=== PATIENT | male | born 1960 | race Caucasian/White ===

== ENCOUNTER 2017-04-28 22:05 | Emergency (ER) | payer OTHER, MEDICARE ==
[~2017-04-28 22:05] MED LIST: ASPIRIN EC81 M1 PO; CYCLOBENZAPRINE10 M1 PO; FLUOXETINE HCL20 M3 PO; IBUPROFEN800 M1 PO; MEDROL4 M2 PO; METOPROLOL SUCC25 M1 PO; MOBIC15 M1 PO; PERCOCET 5-3251 EACH PO
--- NOTE | 2017-04-28 22:36 | ED HAND/WRIST INJURY COMPLAINT ---
History of Present Illness General Chief Complaint: General Adult Stated Complaint: DRESSING CHANGE Source: patient, old records Exam Limitations: no limitations Vital Signs & Intake/Output Vital Signs & Intake/Output Vital Signs Date Time Temp Pulse Resp B/P B/P Pulse O2 O2 Flow FiO2 Mean Ox Delivery Rate 04/28 2212 97.8 20 98 ED Intake and Output 04/29 0000 04/28 1200 Intake Total 0 Output Total Balance 0 Intake, Oral 0 Allergies Coded Allergies: NO KNOWN ALLERGIES (08/12/11) Reconcile Medications Aspirin (Ecotrin*) 81 MG TABLET.DR 1 TAB PO DAILY HEART/BLOOD (Reported) Cephalexin (Keflex) 500 MG CAPSULE 1 CAP PO TID ppx Cyclobenzaprine HCl 10 MG TABLET 1 TAB PO QPM PRN MUSCLE STRAIN Fluoxetine HCl 20 MG TABLET 1 TAB PO DAILY MENTAL HEALTH (Reported) Meloxicam (Mobic) 15 MG TABLET 1 TAB PO DAILY PRN PAIN Methylprednisolone. (Medrol) 4 MG TAB.DS.PK 1 DP PO AD ACUTE NERVE PAIN 6 on day 1 then reduce by one tablet daily until gone Metoprolol Succinate 25 MG TAB 1 TAB PO DAILY HEART (Reported) Triage Note: PER PT CAME TO ED FOR DRESSING CHANGE, PT HAD SUTURES PLACED AT [facility] YESTERDAY TO L 5TH DIGIT, PT WAS TOLD COULD NOT CHANGE DRESSING NOW REQUESTING TO BE SEEN Triage Nurses Notes Reviewed? yes Occurred: yesterday Duration: day(s): (2), better Timing: remote history Injury Environment: work Severity: mild Severity Numbers: 1 Pain/Injury Location: Left: 5th finger. Context: laceration Method of Injury: laceration No Modifying Factors: none Associated Symptoms: none HPI: 56-year-old male presents for wound check after he sustained injury to his left fifth finger yesterday while at work when he cut it with a knife. He states that the provider at [facility] told him there was nothing to suture and a dressing was placed. Advise them to come to the hospital to have the dressing looked at the next day. He denies any pain numbness tingling. No fever no chills no swelling or rashes to his finger. No modifying factors or associated symptoms otherwise. He was not started on any antibiotics. Past History Travel History Traveled to [place] past 21 day No Medical History Any Pertinent Medical History? see below for history Neurological: NONE EENT: NONE Cardiovascular: TRIPLE BYPASS Respiratory: obstructive sleep apnea Gastrointestinal: NONE Hepatic: NONE Renal: NONE Musculoskeletal: CHRONIC BACK PAIN Psychiatric: anxiety Endocrine: diabetes, hypothyroidism Blood Disorders: NONE Cancer(s): NONE Surgical History Surgical History: N Psychosocial History What is your primary language Kinyarwanda Tobacco Use: Never used Family History Hx Contributory? No Review of Systems Review of Systems Constitutional: Reports: see HPI. Comments Review of systems: See HPI, All other systems negative. Constitutional, no chills no fever, HEENT: no sore throat Cardiovascular: No chest pain Skin: no rashes, no change in skin Muscle skeletal: No joint pain, no back pain Neurologic: , no headache Heme/endocrine: No bruising Immunology: No lymphadenopathy Physical Exam Physical Exam General Appearance: well developed/nourished, no apparent distress, alert, awake , comfortable Hand Left: 5th finger Hand Right: normal inspection, normal range of motion Comments: Well-developed well-nourished patient in no apparent distress. HEENT: Atraumatic, extraocular motion intact Neck: Supple, FROM Back: FROM Respiratory: No respiratory distress. Patient speaking in full complete sentences. Extremities: surgicel dressing in placed to R 5th finger avulsion injury, sensation wnl, no swelling, no erythema, full range of motion Neuro: awake, alert, and oriented to person, place and time. There were no obvious focal neurologic abnormalities. Skin: Warm & dry;No appreciable rash on exposed skin Psych: Mood affect normal, normal memory normal judgment. Progress Differential Diagnosis: abscess, cellulitis, contusion, sprain Plan of Care: Current Medications Sig/Senia Start time Last Medication Dose Stop Time Status Admin Cephalexin 500 MG ONCE ONE 04/28 2300 UNVr (Keflex 500MG Cap) 04/28 2301 I discussed with the patient at length plan of careI had an extensive conversation regarding need for close follow up with hand specialist dr baugh this week as well as return precautions. I answered all of their questions, they feel comfortable with the plan and follow-up care. I discussed with the patient/family the medications that they will receive. I gave them signs and symptoms that could indicate an adverse reaction. I have advised them to limit their activities until they can see how they respond to the medication. Departure Departure Time of Disposition: 2245 Disposition: HOME OR SELF CARE Condition: Stable Clinical Impression Primary Impression: Encounter for wound re-check Referrals: Michael BRISCOE,Julián Unknown (PCP/Family) Additional Instructions: Keep area clean and covered as discussed Keflex for prophylaxis. Follow-up with hand doctor Dr. Rodriguez. Return to the ER anytime sooner with any concerns or signs of infection: Redness warmth swelling discharge fever chills. Departure Forms: Customer Survey General Discharge Information Prescriptions: Current Visit Scripts Cephalexin (Keflex) 1 CAP PO TID #21 CAP
[2017-04-28] MEDS ORDERED: KEFLEX500 M1 PO (22:48)
== END 2017-04-28 22:59 ==
LOC: ERH 22:05
DX: Z48.01 Encounter for change or removal of surgical wound dressing (principal)
CPT/HCPCS: 99281

== ENCOUNTER 2017-09-06 00:35 | Emergency (ER) | payer OTHER, MEDICARE ==
[~2017-09-06] VITALS: Ht 165.1 cm; Wt 117.9 kg
[~2017-09-06 00:35] MED LIST changes: +KEFLEX500 M1 PO
--- NOTE | 2017-09-06 00:42 | ED MVC/FALL/TRAUMA COMPLAINT ---
History of Present Illness General Chief Complaint: Fall Stated Complaint: LT LEG, BACK, LT SHOULDER PAIN FELL ON LT SIDE Source: patient Exam Limitations: no limitations Vital Signs & Intake/Output Vital Signs & Intake/Output Vital Signs Date Time Temp Pulse Resp B/P B/P Pulse O2 O2 Flow FiO2 Mean Ox Delivery Rate 09/06 0051 95 Room Air 09/06 0046 98.2 78 18 146/75 95 Room Air Allergies Coded Allergies: NO KNOWN ALLERGIES (08/12/11) Reconcile Medications Aspirin (Ecotrin*) 81 MG TABLET.DR 1 TAB PO DAILY HEART/BLOOD (Reported) Cephalexin (Keflex) 500 MG CAPSULE 1 CAP PO TID ppx Cyclobenzaprine HCl 10 MG TABLET 1 TAB PO QPM PRN MUSCLE STRAIN Fluoxetine HCl 20 MG TABLET 1 TAB PO DAILY MENTAL HEALTH (Reported) Meloxicam (Mobic) 15 MG TABLET 1 TAB PO DAILY PRN PAIN Methylprednisolone. (Medrol) 4 MG TAB.DS.PK 1 DP PO AD ACUTE NERVE PAIN 6 on day 1 then reduce by one tablet daily until gone Metoprolol Succinate 25 MG TAB 1 TAB PO DAILY HEART (Reported) Triage Nurses Notes Reviewed? yes Onset: Abrupt Duration: hour(s): Timing: recent history Severity: mild, moderate Injuries/Fall Location: upper extremity, back, lower extremity Method of Injury: fall Loss of Consciousness: no loss of consciousness Modifying Factors: Improves With: urinating. Worsens With: movement. Associated Symptoms: back pain, hip pain shoulder pain HPI: 57 yo gentleman h/o cad, hypothyroidism, kenneth, presents in prior good health due to a fall. He was at his [employer] restaurant when he slipped on a the raised floor to the floor below (one step). He fell on his right shoulder, lower back, left hip, and both knees. He did not hit his head or lose consciousness. He has no chest pain or syncopal prodrome. He is otherwise well. Past History Travel History Traveled to [place] past 21 day No Medical History Any Pertinent Medical History? see below for history Neurological: NONE EENT: NONE Cardiovascular: TRIPLE BYPASS Respiratory: obstructive sleep apnea Gastrointestinal: NONE Hepatic: NONE Renal: NONE Musculoskeletal: CHRONIC BACK PAIN Psychiatric: anxiety Endocrine: diabetes, hypothyroidism Blood Disorders: NONE Cancer(s): NONE Surgical History Surgical History: N Psychosocial History What is your primary language Japanese Family History Hx Contributory? No Review of Systems Review of Systems Constitutional: Reports: no symptoms. Eyes: Reports: no symptoms. Ears, Nose, Throat, Mouth: Reports: no symptoms. Respiratory: Reports: no symptoms. Cardiovascular: Reports: no symptoms. Gastrointestinal/Abdominal: Reports: no symptoms. Genitourinary: Reports: no symptoms. Musculoskeletal: Reports: no symptoms. Skin: Reports: no symptoms. Neurological/Psychological: Reports: no symptoms. All Other Systems: Reviewed and Negative Physical Exam Physical Exam General Appearance: well developed/nourished, no apparent distress Head: atraumatic, normal appearance Eyes: Bilateral: normal appearance. Ears, Nose, Throat, Mouth: hearing grossly normal, moist mucous membrane Neck: normal inspection, supple, full range of motion Respiratory: normal breath sounds, chest non-tender, no respiratory distress, quiet respiration, lungs clear Cardiovascular: regular rate/rhythm Gastrointestinal: normal bowel sounds, soft, non-tender, no organomegaly Back: normal inspection, normal range of motion Extremities: normal range of motion, mild diffuse muscule tenderness of right shoulder girdle, paravertebral musculature, left hip and bilateral knees. no deformity. pt able to ambulate. Neurologic/Psych: no motor/sensory deficits, awake, alert, oriented x 3 Skin: intact, normal color, warm/dry Core Measures ACS in differential dx? No CVA/TIA Diagnosis No Sepsis Present: No Sepsis Focused Exam Completed? No Progress Differential Diagnosis: ext injury, back injury Plan of Care: Current Medications Sig/Senia Start time Last Medication Dose Stop Time Status Admin Ibuprofen 800 MG ONCE ONE 09/06 0100 UNVr 09/06 (Motrin) 09/06 0101 0109 Diagnostic Imaging: Viewed by Me: Radiology Read. Discussed w/RAD: Radiology Read. Radiology Impression: PATIENT: LORNA BELTRAN PRESENT AGE: 57 PATIENT ACCOUNT NO: [id number] : 60 LOCATION: [facility] ORDERING PHYSICIAN: Moose Anderson MD SERVICE DATE: 09/06/17 EXAM TYPE: RAD - XRY-SHOULDER COMPLETE-RIGHT EXAMINATION: XR SHOULDER, RIGHT CLINICAL INFORMATION: Pain after fall COMPARISON: None TECHNIQUE: Three views of the right shoulder. FINDINGS: No fracture or dislocation. The humeral head articulates appropriately with the glenoid. The acromial clavicular joint is intact with mild hypertrophic degenerative changes. The visualized lung is clear. Median sternotomy wires are noted. IMPRESSION: There is no fracture or malalignment. DICTATED BY: Dell Blanco MD DATE/TIME DICTATED:09/06/17137 WASHER AND CRUSHER TENDER:FORBES DATE/TIME TRANSCRIBED:09/06/17137 CONFIDENTIAL, DO NOT COPY WITHOUT APPROPRIATE AUTHORIZATION. <Electronically signed in Other Vendor System> SIGNED BY: Dell Blanco MD 09/06/17 0144, PATIENT: LORNA BELTRAN PRESENT AGE: 57 PATIENT ACCOUNT NO: [id number] : 60 LOCATION: ER ORDERING PHYSICIAN: Moose Anderson MD SERVICE DATE: 09/06/17 EXAM TYPE: RAD - XRY- LUMBOSACRAL SPINE AP & LAT EXAMINATION: XR LUMBOSACRAL SPINE CLINICAL INFORMATION: Pain after fall COMPARISON: None TECHNIQUE: AP and lateral views of the lumbosacral spine were obtained. FINDINGS: The vertebral bodies and posterior elements are normal. The disc spaces are preserved and the vertebral alignment is normal. Prominent anterior osteophyte at the superior endplate of L3. The paraspinal soft tissues are normal. The sacroiliac joints appear intact. The sacrum appears intact. The bowel gas pattern is unremarkable. IMPRESSION: No acute fracture or malalignment. DICTATED BY: Dell Blanco MD DATE/TIME DICTATED:09/06/17140 WASHER AND CRUSHER TENDER:MARSHA DATE/TIME TRANSCRIBED:140 CONFIDENTIAL, DO NOT COPY WITHOUT APPROPRIATE AUTHORIZATION. < Electronically signed in Other Vendor System> SIGNED BY: Dell Blanco MD 09/06/17 014, PATIENT: LORNA BELTRAN PRESENT AGE: 57 PATIENT ACCOUNT NO: [id number] : 60 LOCATION: [facility] ORDERING PHYSICIAN: Moose Anderson MD SERVICE DATE: 09/06/17 EXAM TYPE: RAD - XRY-KNEE COMPLETE LEFT; XRY-KNEE COMPLETE RIGHT EXAMINATION: XR KNEE, LEFT XR KNEE, RIGHT CLINICAL INFORMATION: Pain after fall COMPARISON: None TECHNIQUE: 4 views of each knee FINDINGS: Left knee: No fracture or subluxation. Compartmental joint spaces are maintained. There are small tricompartmental marginal osteophytes. No definite joint effusion. The soft tissues are unremarkable. Right knee: No fracture or subluxation. Compartmental joint spaces are maintained. Small tricompartmental marginal osteophytes. No joint effusion. Surgical clips are noted at the medial aspect of the knee. IMPRESSION: No acute fracture or malalignment of either knee. Mild tricompartment degenerative change. DICTATED BY: Dell Blanco MD DATE/TIME DICTATED:09/06/17144 WASHER AND CRUSHER TENDER:MARSHA DATE/TIME TRANSCRIBED:09/06/17144 CONFIDENTIAL, DO NOT COPY WITHOUT APPROPRIATE AUTHORIZATION. <Electronically signed in Other Vendor System> SIGNED BY: Dell Blanco MD 09/06/17 0150, PATIENT: LORNA BELTRAN PRESENT AGE: 57 PATIENT ACCOUNT NO : [id number] : 60 LOCATION: [facility] ORDERING PHYSICIAN: Moose Anderson MD SERVICE DATE: 09/06/17 EXAM TYPE: RAD - XRY-HIP 2-3 VIEWS, LEFT EXAMINATION: XR HIP, LEFT CLINICAL INFORMATION: Pain after fall COMPARISON: None TECHNIQUE: Two views of the left hip. FINDINGS: There is no fracture or dislocation. The left femoral head articulates appropriately with its acetabulum. Mild degenerative changes are seen with small osteophytes. The visualized portion of the left hemipelvis is intact. IMPRESSION: No fracture or malalignment. DICTATED BY: Dell Blanco MD DATE/TIME DICTATED:09/06/17142 WASHER AND CRUSHER TENDER:MARSHA DATE/TIME TRANSCRIBED:09/06/17142 CONFIDENTIAL, DO NOT COPY WITHOUT APPROPRIATE AUTHORIZATION. <Electronically signed in Other Vendor System> SIGNED BY: Dell Blanco MD 09/06/178 Departure Departure Disposition: HOME OR SELF CARE Condition: Stable Clinical Impression Primary Impression: Contusion Referrals: Unknown Departure Forms: Customer Survey General Discharge Information Comments 09/06/17, 2:01... discussed with patient at length, pt feeling well, benign xrays, safe for discharge.
--- NOTE | 2017-09-06 01:44 | RADIOLOGY REPORT ---
EXAMINATION: XR SHOULDER, RIGHT CLINICAL INFORMATION: Pain after fall COMPARISON: None TECHNIQUE: Three views of the right shoulder. FINDINGS: No fracture or dislocation. The humeral head articulates appropriately with the glenoid. The acromial clavicular joint is intact with mild hypertrophic degenerative changes. The visualized lung is clear. Median sternotomy wires are noted. IMPRESSION: There is no fracture or malalignment.
--- NOTE | 2017-09-06 01:46 | RADIOLOGY REPORT ---
EXAMINATION: XR LUMBOSACRAL SPINE CLINICAL INFORMATION: Pain after fall COMPARISON: None TECHNIQUE: AP and lateral views of the lumbosacral spine were obtained. FINDINGS: The vertebral bodies and posterior elements are normal. The disc spaces are preserved and the vertebral alignment is normal. Prominent anterior osteophyte at the superior endplate of L3. The paraspinal soft tissues are normal. The sacroiliac joints appear intact. The sacrum appears intact. The bowel gas pattern is unremarkable. IMPRESSION: No acute fracture or malalignment.
--- NOTE | 2017-09-06 01:48 | RADIOLOGY REPORT ---
EXAMINATION: XR HIP, LEFT CLINICAL INFORMATION: Pain after fall COMPARISON: None TECHNIQUE: Two views of the left hip. FINDINGS: There is no fracture or dislocation. The left femoral head articulates appropriately with its acetabulum. Mild degenerative changes are seen with small osteophytes. The visualized portion of the left hemipelvis is intact. IMPRESSION: No fracture or malalignment.
--- NOTE | 2017-09-06 01:50 | RADIOLOGY REPORT ---
EXAMINATION: XR KNEE, LEFT XR KNEE, RIGHT CLINICAL INFORMATION: Pain after fall COMPARISON: None TECHNIQUE: 4 views of each knee FINDINGS: Left knee: No fracture or subluxation. Compartmental joint spaces are maintained. There are small tricompartmental marginal osteophytes. No definite joint effusion. The soft tissues are unremarkable. Right knee: No fracture or subluxation. Compartmental joint spaces are maintained. Small tricompartmental marginal osteophytes. No joint effusion. Surgical clips are noted at the medial aspect of the knee. IMPRESSION: No acute fracture or malalignment of either knee. Mild tricompartment degenerative change.
[2017-09-06 02:07] VITALS: BP 138/71
== END 2017-09-06 02:08 ==
LOC: ERH 00:35
DX: T14.8XXA Other injury of unspecified body region, initial encounter (principal); W01.0XXA Fall on same level from slipping, tripping and stumbling without subsequent striking against object, initial encounter; Y92.511 Restaurant or cafe as the place of occurrence of the external cause; Y93.9 Activity, unspecified
CPT/HCPCS: 72100; 73030-RT; 73502-LT; 73562-LT; 73562-RT